=== PATIENT | male | born 1955 | race Caucasian/White ===

== ENCOUNTER 2017-02-17 14:47 | Emergency (ER) | payer BC, MEDICAID ==
[~2017-02-17] VITALS: Ht 157.5 cm; Wt 90.0 kg
[~2017-02-17 14:47] MED LIST: ASPI-664 PO; CLOP75TA27
[2017-02-17 14:56] VITALS: Ht 157.5 cm; Wt 90.0 kg
[2017-02-17] MEDS ORDERED: ONDANSETRON 4 MG INJ IV STA (16:03)
[2017-02-17] MEDS ORDERED: SOD CHLORIDE 0.9% 1,000 ML IV STA (16:03)
[2017-02-17] MEDS ORDERED: morphine 4 MG/ML VIAL IV STA (16:03)
[2017-02-17 16:06] LABS: URINE BLOOD (Dip) POC 2+ (NEGATIVE)
[2017-02-17 16:23] LABS: BASOPHIL # 0.1 10^3/ul (0.0-0.1); BASOPHILS % 0.7 % (0.0-2.0); EOSINOPHILS # 0.2 10^3/ul (0.0-0.5); EOSINOPHILS % 2.7 % (0.0-7.0); HEMATOCRIT 43.2 % (42.0-52.0); HEMOGLOBIN 14.9 g/dl (14.0-18.0); LYMPHOCYTES # 2.4 10^3/ul (0.8-2.9); LYMPHOCYTES % 27.8 % (15.0-51.0); MEAN CORPUSCULAR HGB CONC 34.5 g/dl (32.0-37.0); MEAN PLATELET VOLUME 10.8 fl (7.4-10.4); MONOCYTE # 0.9 10^3/ul (0.3-0.9); MONOCYTES % 10.5 % (0.0-11.0); NEUTROPHIL # 4.9 10^3/ul (1.6-7.5); NEUTROPHILS % 57.9 % (39.0-77.0); PLATELET COUNT 166 10^3/UL (140-415); RED CELL DISTRIBUTION WIDTH 11.9 % (11.5-14.5); WHITE BLOOD COUNT 8.5 10^3/ul (4.8-10.8)
[2017-02-17 16:33] LABS: ADD UMIC YES; UR ASCORBIC ACID NEGATIVE (NEGATIVE); UR BILIRUBIN (Dip) NEGATIVE (NEGATIVE); UR BLOOD (Dip) 2+ mg/dL (NEGATIVE); UR CLARITY SLIGHTLY CLOUDY (CLEAR); UR COLOR YELLOW (YELLOW); UR GLUCOSE (Dip) NEGATIVE (NEGATIVE); UR KETONES (Dip) TRACE mg/dL (NEGATIVE); UR LEUKOCYTE ESTERASE (Dip) NEGATIVE Leu/ul (NEGATIVE); UR MUCUS FEW /HPF (NONE SEEN); UR NITRITE (Dip) NEGATIVE (NEGATIVE); UR RBC 6 /HPF (0-5); UR SPECIFIC GRAVITY (Dip) 1.031 (1.003-1.030); UR TOTAL PROTEIN (Dip) NEGATIVE (NEGATIVE); UR UROBILINOGEN (Dip) 1+ mg/dL (NEGATIVE)
[2017-02-17 16:55] LABS: ALANINE AMINOTRANSFERASE 48 IU/L (13-69); ALBUMIN 4.5 g/dl (3.3-4.9); ALBUMIN/GLOBULIN RATIO 1.55; ALKALINE PHOSPHATASE 107 IU/L (42-121); AMYLASE 90 U/L (11-123); ANION GAP 14 (8-16); ASPARTATE AMINO TRANSFERASE 29 IU/L (15-46); BILIRUBIN,INDIRECT 0.2 mg/dl (0-1.1); BILIRUBIN,TOTAL 0.2 mg/dl (0.2-1.3); BLOOD UREA NITROGEN 16 mg/dl (7-20); CALCIUM 8.9 mg/dl (8.4-10.2); CARBON DIOXIDE 28 mmol/L (21-31); CHLORIDE 103 mmol/L (97-110); CREATININE 1.02 mg/dl (0.61-1.24); GLUCOSE 101 mg/dl (70-220); INR 0.95; POTASSIUM 4.1 mmol/L (3.5-5.1); PROTIME 12.8 Sec (11.9-14.9); SODIUM 141 mmol/L (135-144); TOTAL PROTEIN 7.4 g/dl (6.1-8.1)
[2017-02-17 16:56] LABS: PARTIAL THROMBOPLASTIN TIME 32.5 Sec (25.0-35.0)
[2017-02-17 17:18] LABS: TROPONIN-I < 0.012 ng/ml (0.00-0.12)
--- NOTE | 2017-02-17 17:43 | RADRPT ---
PROCEDURE: CT of the abdomen and pelvis without contrast CLINICAL INDICATION: Abdominal pain. TECHNIQUE: Spiral CT images through the abdomen and pelvis without the use of oral and without the use of intravenous contrast. The administered radiation dose is CTDI 17.85 and DLP 1046.54. One or more of the following dose reduction techniques were used: automated exposure control, adjustment o f the mA and/or kV according to patient size, or use of iterative reconstruction technique. DICOM im ages are available. COMPARISON: 08/28/2012 FINDINGS: The study is limited by lack of intravenous contrast. Lower thorax: Slight dependent atalectasis of the lung bases is seen.. Liver: Calcified granuloma is seen in the inferior liver.. Biliary: 1.2 cm gallstone is seen, slightly increased in size compared with prior. The gallbladder i s somewhat contracted.. No biliary ductal dilatation is seen. Pancreas: Unremarkable. No focal mass or inflammatory process. Spleen: The spleen is unremarkable in appearance Adrenal glands: Small low attenuation lesions of both adrenal glands are seen, slightly larger than on the prior study. Larger is on the left measures 11 mm in diameter and -1 HU. These most likely re present small adenomas.. Genitourinary: No hydronephrosis or renal calculi are seen.. The bladder is unremarkable in appearan ce.. Small incidental urachal remnant. Gastrointestinal Tract: There is no evidence for bowel obstruction, free air, or abscess. The appen yakov is not identified. No pericecal inflammatory process is seen.. Moderate debris is seen in the stomach. Fat-containing umbilical hernia. Lymph nodes: No adenopathy is seen... Vascular structures: Aortic and coronary artery calcification is seen.. Peritoneal cavity: Unremarkable mesentery and peritoneum.. No mass, edema, or ascites. Reproductive Organs: Slightly enlarged prostate with small calcifications. Right greater than left f at-containing inguinal hernias.. Musculoskeletal: There is mild degenerative change of the spine. IMPRESSION: 1.2 cm gallstone. No biliary or pancreatic ductal dilatation. Small probable bilateral adrenal adenomas, likely incidental. Fat-containing umbilical and inguinal hernias.. RPTAT: HLBE Blanca Rhodes, Physician Date Time Electronically viewed and signed by Blanca Rhodes, Physician on 02/17/2017 17:43 LE/
--- NOTE | 2017-02-17 18:52 | ERD ---
ER Documentation Chief Complaint Chief Complaint LEFT FLANK PAIN X 1 WEEK, WORSEN TODAY HPI This is a 62-year-old male with a past medical history of hypertension that presents to the emergency department complaining of left flank pain that has been intermittent for 1 week. He states the pain was a dull achy pain that was exacerbated by movement. He did not take any analgesic medication prior to arrival. He denies any recent or remote trauma. He also indicates that yesterday he had a significant amount of food at [employer] [employer] dinner that did include fried meats. He stated that shortly after he developed pain in his right upper quadrant but this did not radiate to the right lower quadrant. He did not have any associated symptoms of nausea vomiting or diaphoresis. He has no chest pain or pressure that radiates to the neck arm back or jaw. He has no shortness of breath at rest or exertion. He denies any similar pain in the past no shortness of breath at rest or exertion. ROS All systems reviewed and are negative except as per history of present illness. Medications Home Meds Reported Medications Clopidogrel Bisulfate (Clopidogrel) 75 Mg Tablet 08/28/12 Aspirin* (Aspirin* EC) 81 Mg Tablet.dr, 81 MG PO DAILY 07/07/11 Allergies Allergies: Coded Allergies: Penicillins (Verified Allergy, Unknown, RASH, 08/28/12) PMhx/Soc History of Surgery: Yes (APPENDECTOMY,3 HEART STENTS PLACEMENT) Anesthesia Reaction: No Hx Neurological Disorder: No Hx Respiratory Disorders: No Hx Cardiac Disorders: Yes (HTN,HYPERCHOLESTEROL) Hx Psychiatric Problems: No Hx Miscellaneous Medical Probl: Yes (Foreign Body to Left Eye) Hx Alcohol Use: No Hx Substance Use: No Hx Tobacco Use: Yes Smoking Status: Former smoker Physical Exam Vitals Vital Signs Date Time Temp Pulse Resp B/P Pulse Ox O2 Delivery O2 Flow Rate FiO2 02/17/17 14:56 98.1 77 18 119/66 99 Physical Exam Constitutional:Well-developed. Well-nourished. HEENT:Normocephalic. Atraumatic.Pupils were equal round reactive to light. Moist mucous membranes.No tonsillar exudates. Neck: No nuchal rigidity. No lymphadenopathy. No posterior cervical spine tenderness or step-offs. Respiratory: Not using accessory muscles of respiration.Lungs were clear to auscultation bilaterally. No rhonchi. No rales. No wheezing. Cardiovascular: Regular rate regular rhythm.No murmurs. No rubs were appreciated.S1, S2 normal. Distal pulses are palpable 2+ bilaterally. GI: Abdomen was soft. Right upper quadrant tenderness with negative Arriaza sign. Left flank tenderness. Non Distended. No pulsatile abdominal masses or bruits. No rebound. No guarding. Bowel sounds were present and normal. Muscle skeletal: Full range of motion of both the upper and lower extremities bilaterally.Normal muscle tone.No assymetrical calf tenderness or swelling. Skin: No petechia, no purpura. No lesions on the palms or the soles of the feet. No maculopapular rash. NEURO: Patient was alert, awake, orientated x3.No facial droop. Gait observed and normal with no ataxia.Speech had regular rate and rhythm. No focal neurological deficits. Result Diagram: 02/17/17 1612 02/17/17 1612 Results 24 hrs Laboratory Tests Test 02/17/17 16:06 02/17/17 16:12 Bedside Urine pH (LAB) 5.5 Bedside Urine Protein (LAB) 1+ Bedside Urine Glucose (UA) Negative Bedside Urine Ketones (LAB) Negative Bedside Urine Blood 2+ Bedside Urine Nitrite (LAB) Negative Bedside Urine Leukocyte Esterase (L Negative White Blood Count 8.510^3/ul Red Blood Count 4.8010^6/ul Hemoglobin 14.9g/dl Hematocrit 43.2% Mean Corpuscular Volume 90.0fl Mean Corpuscular Hemoglobin 31.0pg Mean Corpuscular Hemoglobin Concent 34.5g/dl Red Cell Distribution Width 11.9% Platelet Count 49510^3/UL Mean Platelet Volume 10.8fl Neutrophils % 57.9% Lymphocytes % 27.8% Monocytes % 10.5% Eosinophils % 2.7% Basophils % 0.7% Nucleated Red Blood Cells % 0.0/100WBC Neutrophils # 4.910^3/ul Lymphocytes # 2.410^3/ul Monocytes # 0.910^3/ul Eosinophils # 0.210^3/ul Basophils # 0.110^3/ul Nucleated Red Blood Cells # 0.010^3/ul Prothrombin Time 12.8Sec Prothrombin Time Ratio 1.0 INR International Normalized Ratio 0.95 Activated Partial Thromboplast Time 32.5Sec Urine Color YELLOW Urine Clarity SLIGHTLY CLOUDY Urine pH 5.0 Urine Specific [place] 1.031 Urine Ketones TRACEmg/dL Urine Nitrite NEGATIVEmg/dL Urine Bilirubin NEGATIVEmg/dL Urine Urobilinogen 1+mg/dL Urine Leukocyte Esterase NEGATIVELeu/ul Urine Microscopic RBC 6/HPF Urine Microscopic WBC 1/HPF Urine Calcium Oxalate Crystals MANY/HPF Urine Mucus FEW/HPF Urine Hemoglobin 2+mg/dL Urine Glucose NEGATIVEmg/dL Urine Total Protein NEGATIVEmg/dl Sodium Level 141mmol/L Potassium Level 4.1mmol/L Chloride Level 103mmol/L Carbon Dioxide Level 28mmol/L Anion Gap 14 Blood Urea Nitrogen 16mg/dl Creatinine 1.02mg/dl Glucose Level 101mg/dl Calcium Level 8.9mg/dl Total Bilirubin 0.2mg/dl Direct Bilirubin 0.00mg/dl Indirect Bilirubin 0.2mg/dl Aspartate Amino Transf (AST/SGOT) 29IU/L Alanine Aminotransferase (ALT/SGPT) 48IU/L Alkaline Phosphatase 107IU/L Troponin I < 0.012ng/ml Total Protein 7.4g/dl Albumin 4.5g/dl Globulin 2.90g/dl Albumin/Globulin Ratio 1.55 Amylase Level 90U/L Lipase 32U/L Current Medications Medications (Trade) Dose Ordered Sig/Martina Route PRN Reason Start Time Stop Time Status Last Admin Dose Admin Sodium Chloride (NS) 1,000 ml @ 1,000 mls/hr Q1H STAT IV 02/17/17 16:03 02/17/17 17:02 DC 02/17/17 16:11 Morphine Sulfate (morphine) 4 mg ONCE STAT IV 02/17/17 16:03 02/17/17 16:05 DC 02/17/17 16:10 Ondansetron HCl (Zofran Inj) 4 mg ONCE STAT IV 02/17/17 16:03 02/17/17 16:05 DC 02/17/17 16:10 Procedures/MDM This patient presented to the emergency department with abdominal pain and was seen and evaluated by myself. My differential diagnosis included but was not limited to abdominal aortic aneurysm, appendicitis, pancreatitis, perforated peptic ulcer, perforated viscus, Boerhaaves syndrome or visceral pain such as diverticulitis, DKA, esophagitis, hepatitis or bowel obstruction. The patient was placed on a hospital monitor, continuous pulse oximetry, and IV access was established by nursing staff. The patient received intravenous morphine Zofran and Toradol. Also obtained a CT scan of the patient's abdomen which did indicate the patient had cholelithiasis without any evidence of biliary duct obstruction. The patient had no evidence of obstructive uropathy or other acute emergent process. The patient had Lassiter, hematuria. I did indicate that he would benefit from falling up on an outpatient basis with his PCP is getting cannot rule out a neoplastic process at this time causing his microscopic painless hematuria. The patient was discharged home in fair condition. They were instructed to return to the emergency department at any time if there was any worsening of their condition. The patient stated they would follow up with their PCP in the next 24-48 hours to initiate a suitable medication regimen under the care of their PCP as well as to allow their PCP to monitor any drug reactions. The patient was discharged home with prescriptions after they gave informed consent to the new medication. They were also fully informed by myself on the adverse effects and adverse drug interactions in order to provide adequate safeguards to prevent possible adverse reactions to medications. Departure Diagnosis: Primary Impression: Flank pain Additional Impression: Cholelithiasis Cholelithiasis location: gallbladder Cholecystitis presence: without cholecystitis Biliary obstruction: without biliary obstruction Qualified Code : K80.20 - Calculus of gallbladder without cholecystitis without obstruction Condition: TIGRE Gillespie Feb 17, 2017 18:43
[2017-02-17] MEDS ORDERED: KETOROLAC 30 MG INJ IV STA (18:53)
[2017-02-17] MEDS ORDERED: HYDR-906 PO (18:55)
[2017-02-17 19:02] VITALS: BP 126/81; PULSE 70; RESP 16
== END 2017-02-17 19:17 | disposition home or self-care (01) ==
LOC: E/R 14:47
DX: K80.20 Calculus of gallbladder without cholecystitis without obstruction (principal); I10 Essential (primary) hypertension; Z87.891 Personal history of nicotine dependence; Z79.01 Long term (current) use of anticoagulants; Z79.82 Long term (current) use of aspirin; Z98.61 Coronary angioplasty status
CPT/HCPCS: 36415; 74176; 80053; 81001; 82150; 83690; 84153; 84154; 84484; 85025; 85610; 85730; 96374; 96375; J1885; J2270; J2405; J7030; Z7502; 81003

== ENCOUNTER 2017-04-27 15:13 | Emergency (ER) | END 2017-04-27 21:58 | disposition home or self-care (01) ==

== ENCOUNTER 2017-09-15 07:32 | Day surgery (SDC) | END 2017-09-15 11:20 | disposition home or self-care (01) ==